=== PATIENT | male | born 1990 | race Hispanic/Latino ===

== ENCOUNTER 2017-10-06 16:48 | Emergency (ER) | payer BC ==
[2017-10-06 16:52] VITALS: BP 147/92; RESP 16; O2SAT 100
[2017-10-06 18:13] LABS: BASO % 0.2 % (0.0-2.0); EOS # 0.1 K/uL (0.0-0.7); EOS % 1.1 % (0.0-4.0); HEMOGLOBIN 14.3 g/dL (12.0-18.0); LYMPH # 1.8 K/uL (1.0-4.3); LYMPH % 21.3 % (20.0-40.0); MEAN CELL VOLUME 83.9 fl (80.0-94.0); MEAN CORPUSCULAR HEMOGLOBIN 28.7 pg (27.0-31.0); MEAN CORPUSCULAR HGB CONC 34.3 g/dL (33.0-37.0); MEAN PLATELET VOLUME 7.5 fl (7.2-11.7); MONO # 0.7 K/uL (0.0-0.8); MONO % 7.7 % (0.0-10.0); NEUT # 5.9 K/uL (1.8-7.0); NEUT % 69.7 % (50.0-75.0); NRBC % 0.1 % (0.0-0.0); RBC 4.98 Mil/uL (4.40-5.90); RED CELL DISTRIBUTION WIDTH 13.2 % (11.5-14.5); WHITE BLOOD COUNT 8.5 K/uL (4.8-10.8)
[2017-10-06 18:19] LABS: BLOOD UREA NITROGEN 14 mg/dl (9-20); CALCIUM 8.9 mg/dL (8.4-10.2); GFR AFRICAN-AMERICAN > 60; GFR NON-AFRICAN AMERICAN > 60
--- NOTE | 2017-10-06 18:22 | ED PDOC ---
Syncope/Near Syncope/Dizziness Time Seen by Provider: 10/06/17 17:24 Chief Complaint (Nursing): Syncope Chief Complaint (Provider): Syncope History Per: Patient History/Exam Limitations: no limitations Current Symptoms Are (Timing): Gone Now Number Of Syncopal Episodes: 1 Activity At Onset Of Symptoms: Standing Seizure Or Post-ictal Symptoms: None Fall Associated With With Symptoms: Yes Additional History Per: Patient Additional Complaint(s): 26yo male, no history, comes to ER for evaluation after he had a syncopal episode prior to arrival. Patient states he was in the bathroom at work making a bowel movement. States he was looking at pictures of wrist fractures as he had a mechanical fall the day before and landed on his left wrist with subsequent wrist pain; patient states in the past he has been "queasy" with blood and some of the pictures had blood on them. He reports once he got up, he felt dizzy and passed out. Per witnesses in the bathroom, patient was passed out for ~ 5 seconds, and did not have any seizure like activity. Patient reports once he came to, he had an occipital headache which is still present. Otherwise, he denies any current dizziness, chest pain or shortness of breath. Patient also states the bowel movement he had was normal and denies any constipation, diarrhea,or hematuria. Past Medical History Reviewed: Historical Data, Nursing Documentation, Vital Signs Vital Signs: Last Vital Signs Temp 98.0 F 10/06/17 16:50 Pulse 86 10/06/17 16:50 Resp 16 10/06/17 16:50 BP 147/92 H 10/06/17 16:50 Pulse Ox 100 10/06/17 16:50 - Medical History PMH: No Chronic Diseases - Surgical History Surgical History: Tonsillectomy - Family History Family History: States: No Known Family Hx - Home Medications Home Medications: Ambulatory Orders Medication Instructions Recorded No Known Home Med 10/06/17 - Allergies Allergies/Adverse Reactions: Allergies Allergy/AdvReac Type Severity Reaction Status Date / Time No Known Allergies Allergy Verified 10/06/17 16:50 Review of Systems ROS Statement: Except As Marked, All Systems Reviewed And Found Negative Constitutional: Negative for: Fever, Chills ENT: Negative for: Other (tongue bite) Cardiovascular: Negative for: Chest Pain Respiratory: Negative for: Shortness of Breath Gastrointestinal: Negative for: Nausea, Vomiting, Diarrhea, Constipation Genitourinary Male: Negative for: Dysuria, Incontinence, Hematuria Neurological: Positive for: Headache, Other (syncopal episode). Negative for: Dizziness Physical Exam - Reviewed Nursing Documentation Reviewed: Yes Vital Signs Reviewed: Yes - Physical Exam Appears: Positive for: Non-toxic, No Acute Distress Head Exam: Positive for: ATRAUMATIC, NORMAL INSPECTION, NORMOCEPHALIC Skin: Positive for: Normal Color, Warm, DRY Eye Exam: Positive for: EOMI, Normal appearance, PERRL ENT: Positive for: Normal ENT Inspection Neck: Positive for: Normal, Painless ROM, Supple Cardiovascular/Chest: Positive for: Regular Rate, Rhythm. Negative for: Murmur Respiratory: Positive for: Normal Breath Sounds. Negative for: Respiratory Distress Pulses-Radial (L): 2+ Pulses-Radial (R): 2+ Gastrointestinal/Abdominal: Positive for: Normal Exam, Soft. Negative for: Tenderness, Guarding, Rebound Back: Positive for: Normal Inspection Extremity: Positive for: Normal ROM (FROM left wrist), Tenderness (mild tenderness to dorsum of left wrist; no snuff box tenderness). Negative for: Pedal Edema, Deformity, Swelling Neurologic/Psych: Positive for: Alert, clinical fellow II-XII (intact), Oriented, Mood/ Affect (normal), Cerebellar Tests (normal), Gait (steady). Negative for: Motor/ Sensory Deficits, Aphasia, Facial Droop - Laboratory Results Result Diagrams: 10/06/17 17:51 10/06/17 17:51 - ECG ECG: Positive for: Interpreted By Me, Viewed By Nm ECG Rhythm: Positive for: Normal QRS, Normal ST Segment, Sinus Rhythm Rate: 72 O2 Sat by Pulse Oximetry: 100 (RA) Pulse Ox Interpretation: Normal - Progress Re-evaluation Time: 19:00 Condition: Re-examined, Improved Medical Decision Making Medical Decision Making: Impression: Syncope, head injury, left wrist injury Differential: Vasovagal syncope due to defecation vs. sight of blood; r/o cardiac arrhythmia; r/o intracranial hemorrhage; r/o TBI; r/o left wrist fracture Plan: -- Labs -- CT Head w/o contrast -- Chest x-ray -- XR Left wrist 8303 CT Head FINDINGS: HEMORRHAGE: No acute parenchymal, subarachnoid or extra-axial hemorrhage. BRAIN: There are no focal areas of abnormal attenuation seen within the substance of the brain. No obvious parenchymal masses or collections seen on this noncontrast study. Ventricular and sulcal size are normal. VENTRICLES: No obstructive hydrocephalus. CALVARIUM: Calvarium intact. PARANASAL SINUSES: There appears to be a small fluid level left maxillary sinus. The left mastoid air complex is slightly sclerotic and underpneumatized. MASTOID AIR CELLS: Unremarkable as visualized. No inflammatory changes. OTHER FINDINGS: None. IMPRESSION: No acute intracranial hemorrhage. 1999 CXR reviewed, no acute findings. 2003 XR Left wrist FINDINGS: Bones/joints: Normal bone mineralization. Normal osseous alignment. No fracture. No dislocation. Soft tissues: Mild dorsal wrist soft tissue swelling. No radiopaque foreign body. IMPRESSION: 1. No evidence fracture of the left wrist. If pain and clinical concern persist , recommend conservative management and followup radiographs in 10-14 days to exclude occult fracture. 2. Dorsal left wrist soft tissue swelling. Scribe Attestation: Documented by Marlyn Bhat, acting as a scribe for Meera Polanco MD. Provider Scribe Attestation: All medical record entries made by the Scribe were at my direction and personally dictated by me. I have reviewed the chart and agree that the record accurately reflects my personal performance of the history, physical exam, medical decision making, and the department course for this patient. I have also personally directed, reviewed, and agree with the discharge instructions and disposition. Disposition - Clinical Impression Clinical Impression: Syncope, Head injury, Left wrist injury - Patient ED Disposition Is Patient to be Admitted: No Doctor Will See Patient In The: Office Counseled Patient/Family Regarding: Studies Performed, Diagnosis, Need For Followup - Disposition Referrals: Dao Durant MD [Medical Doctor] - Disposition: Routine/Home Disposition Time: 19:00 Condition: GOOD Additional Instructions: Drink plenty of fluids. Follow up with your PCP in 2-3 days. Return for worsening. ARTURO CASTAÑEDA, thank you for letting us take care of you today. Your provider was Meera Polanco MD and you were treated for POSS SYNCOPE. The emergency medical care you received today was directed at your acute symptoms. If you were prescribed any medication, please fill it and take as directed. It may take several days for your symptoms to resolve. Return to the Emergency Department if your symptoms worsen, do not improve, or if you have any other problems. Please contact your doctor or call one of the physicians/clinics you have been referred to that are listed on the Patient Visit Information form that is included in your discharge packet. Bring any paperwork you were given at discharge with you along with any medications you are taking to your follow up visit. Our treatment cannot replace ongoing medical care by a primary care provider outside of the emergency department. Thank you for allowing the [facility] team to be part of your care today. If you had an X-Ray or CT scan: A Radiologist will review the ED reading if any change in treatment is needed we will contact you. If you had a blood, urine, or wound culture: It will take several days for the results, if any change in treatment is needed we will contact you. If you had an STI test: It will take 48 hours for the results. Please call after 1 week if you have not heard back. Instructions: Syncope (Fainting) (DC), Wrist Fracture (DC), Minor Head Injury ( DC)
[2017-10-06 18:26] VITALS: PULSE 72
--- NOTE | 2017-10-06 18:57 | CT ---
Date of service: 10/06/2017 PROCEDURE: CT HEAD WITHOUT CONTRAST. HISTORY: head injury COMPARISON: None available. TECHNIQUE: Axial computed tomography images were obtained through the head/brain without intravenous contrast. Radiation dose: Total exam DLP = 884.83 mGy-cm. This CT exam was performed using one or more of the following dose reduction techniques: Automated exposure control, adjustment of the mA and/or kV according to patient size, and/or use of iterative reconstruction technique. . FINDINGS: HEMORRHAGE: No acute parenchymal, subarachnoid or extra-axial hemorrhage. BRAIN: There are no focal areas of abnormal attenuation seen within the substance of the brain. No obvious parenchymal masses or collections seen on this noncontrast study. Ventricular and sulcal size are normal. VENTRICLES: No obstructive hydrocephalus. CALVARIUM: Calvarium intact. PARANASAL SINUSES: There appears to be a small fluid level left maxillary sinus. The left mastoid air complex is slightly sclerotic and underpneumatized. MASTOID AIR CELLS: Unremarkable as visualized. No inflammatory changes. OTHER FINDINGS: None. IMPRESSION: No acute intracranial hemorrhage.
[2017-10-06 22:11] VITALS: TEMP 98.1
--- NOTE | 2017-10-07 08:32 | CARD ---
APPROVED REPORT Date of service: 10/06/2017 <Conclusion> Normal sinus rhythm with sinus arrhythmia Normal ECG
--- NOTE | 2017-10-07 10:43 | RAD ---
Date of service: 10/06/2017 PROCEDURE: CHEST RADIOGRAPH, 1 VIEW HISTORY: dyspnea COMPARISON: None available. FINDINGS: LUNGS: Clear. PLEURA: No pneumothorax or pleural fluid seen. CARDIOVASCULAR: Normal. OSSEOUS STRUCTURES: No significant abnormalities. VISUALIZED UPPER ABDOMEN: Normal. OTHER FINDINGS: None. IMPRESSION: No active disease.
--- NOTE | 2017-10-07 10:43 | RAD ---
Date of service: 10/06/2017 PROCEDURE: Left Wrist Radiographs. HISTORY: lef wrist fracture COMPARISON: None. FINDINGS: BONES: Normal. No fracture. JOINTS: Normal. No dislocation. SOFT TISSUES: Normal. OTHER FINDINGS: None. IMPRESSION: Normal left wrist radiographs.
== END 2017-10-06 20:55 | disposition home or self-care (01) ==
LOC: H.ER 16:48
DX: R55 Syncope and collapse (principal); S09.90XA Unspecified injury of head, initial encounter; S69.92XA Unspecified injury of left wrist, hand and finger(s), initial encounter; W19.XXXA Unspecified fall, initial encounter; Y92.89 Other specified places as the place of occurrence of the external cause
CPT/HCPCS: 70450; 71045; 73110; 80048; 82948; 84484; 85025; 93005; 99285; G0480